=== PATIENT | female | born 1980 | race Caucasian/White ===

== ENCOUNTER 2016-07-12 16:09 | Emergency (ER) | payer OTHER | END 2016-07-12 18:48 | disposition home or self-care (01) | LOC: ER 16:09 | DX: H65.93 Unspecified nonsuppurative otitis media, bilateral (principal); B34.9 Viral infection, unspecified; F17.200 Nicotine dependence, unspecified, uncomplicated; Z88.0 Allergy status to penicillin | CPT/HCPCS: 99282 ==